=== PATIENT | male | born 1955 | race Caucasian/White ===

== ENCOUNTER 2022-08-10 05:06 | Day surgery (SDC) | payer MEDICARE, BC ==
[~2022-08-10 05:06] MED LIST: Sodium Chloride 0.9% 10 ML Syringe FLUSH PRN; Sodium Chloride 0.9% 10 ML Syringe FLUSH SCH
[2022-08-10] MEDS ORDERED: fentaNYL 100 MCG/2 ML SDV IV ONE (05:07)
[2022-08-10] MEDS ORDERED: Midazolam 1 MG/ML 2 ML SDV IV ONE (05:07)
[2022-08-10] MEDS: Dextrose 5%-0.45% NaCl 1,000 ML IV SCH (05:43)
[2022-08-10] MEDS ORDERED: Midazolam 1 MG/ML 2 ML SDV ONE (06:08)
[2022-08-10] MEDS ORDERED: fentaNYL 100 MCG/2 ML SDV ONE (06:09)
[2022-08-10] MEDS: fentaNYL 100 MCG/2 ML SDV IV ONE ×2 (06:33→06:34)
[2022-08-10] MEDS: Midazolam 1 MG/ML 2 ML SDV IV ONE ×6 (06:34→06:42)
[2022-08-10 09:00] VITALS: BP 115/67; PULSE 55
== END 2022-08-10 08:26 | disposition home or self-care (01) ==
LOC: DL.ENDO 05:06
PROVIDERS: ATTEND Internal Medicine Gastroenterology
DX: Z12.11 Encounter for screening for malignant neoplasm of colon (principal); K57.30 Diverticulosis of large intestine without perforation or abscess without bleeding; I10 Essential (primary) hypertension; E78.5 Hyperlipidemia, unspecified; E87.5 Hyperkalemia; N40.0 Benign prostatic hyperplasia without lower urinary tract symptoms; H91.90 Unspecified hearing loss, unspecified ear; Z98.52 Vasectomy status
CPT/HCPCS: G0121; J2250; J3010; J7042